=== PATIENT | male | born 1975 | race Caucasian/White ===

== ENCOUNTER 2022-10-15 14:30 | Emergency (ER) | payer MEDICAID ==
[~2022-10-15] VITALS: Ht 170.2 cm; Wt 81.0 kg
[2022-10-15 14:35] VITALS: O2SAT 98
[2022-10-15 15:29] LABS: BASOPHILS % 0.2 % (0.0-2.0); EOSINOPHILS % 0.4 % (0.0-5.0); HEMATOCRIT. 40.6 % (42.0-52.0); HEMOGLOBIN. 14.4 g/dL (14.0-18.0); LYMPHOCYTES % 10.6 % (20.0-50.0); MEAN CORPUSCULAR HEMOGLOBIN 32.9 pg (28.0-32.0); MEAN CORPUSCULAR HGB CONC 35.4 g/dL (31.0-37.0); MEAN CORPUSCULAR VOLUME 92.9 fL (80.0-94.0); MEAN PLATELET VOLUME 8.5 fl (7.4-10.4); MONOCYTES % 8.3 % (2.0-8.0); NEUTROPHILS % 80.5 % (40.0-76.0); PLATELET 244 x1000/uL (130-400); RED BLOOD CELL COUNT 4.37 mill/uL (4.7-6.1); RED CELL DISTRIBUTION WIDTH 12.7 % (11.6-14.6); WHITE BLOOD COUNT 12.2 x1000/uL (4.5-11.0)
[2022-10-15 15:55] LABS: CHLORIDE 96 mEq/L (98-107); INDEX HEMOLYSI 1 (1-3); INDEX ICTERIC 1 (1-4); INDEX LIPEMIC 1 (1-3); POTASSIUM 3.6 mEq/L (3.5-5.1); SODIUM 131 mEq/L (136-145)
[2022-10-15] MEDS ORDERED: AMPICILLIN SOD IV SCH (16:00)
[2022-10-15] MEDS ORDERED: SULBACTAM NA IV SCH (16:00)
[2022-10-15] MEDS ORDERED: SODIUM CHLORIDE 0.9% IV SCH (16:00)
[2022-10-15] MEDS ORDERED: SODIUM CHLORIDE 0.9% 100 ML IV ONE (16:00)
[2022-10-15 16:04] LABS: ALANINE AMINOTRANSFERASE 36 IU/L (13-61); ALBUMIN 3.6 g/dL (3.4-5.0); ASPARTATE AMINOTRANSFERASE 30 IU/L (15-37); BILIRUBIN TOTAL 0.9 mg/dL (0.1-1.0); CALCIUM 9.3 mg/dL (8.5-10.1); CARBON DIOXIDE 26 mEq/L (21-32); CREATININE 0.8 mg/dL (0.6-1.3); GLUCOSE 306 mg/dL (70-105); UREA NITROGEN BLOOD 16 mg/dL (7-21)
[2022-10-15] MEDS ORDERED: AMOX1TAB16 MT (16:54)
[2022-10-15] MEDS ORDERED: MUPI15CR11 TP (16:54)
[2022-10-15 17:07] VITALS: BP 157/88; PULSE 98; RESP 18; TEMP 98.4
[2022-10-21] MEDS ORDERED: ATOR40TA70 PO (23:32)
[2022-10-21] MEDS ORDERED: BENA-8 PO (23:32)
[2022-10-21] MEDS ORDERED: METF-416 MT (23:32)
[2022-10-25] MEDS ORDERED: LEVO750T68 MT (20:37)
[2022-10-25] MEDS ORDERED: DOXY100C5 MT (20:37)
== END 2022-10-15 17:36 | disposition home or self-care (01) ==
LOC: ER 14:30
DX: M79.89 Other specified soft tissue disorders (principal); R00.0 Tachycardia, unspecified; E11.9 Type 2 diabetes mellitus without complications
CPT/HCPCS: 99284; 96365; 80053; 83605; 85025; 87040; 36415; 84145; 73630; J0295; J7050